=== PATIENT | female | born 1995 | race Caucasian/White ===

== ENCOUNTER 2016-09-25 20:43 | Observation (INO) ==
[2016-09-25 22:10] LABS: Bilirubin,Urine Negative (Negative); Blood,Urine Negative (Negative); Clarity,Urine Cloudy (Clear); Color,Urine Yellow (Yellow); Glucose,Urine (UA) Normal (Normal); Ketones,Urine Negative (Negative); Leukocyte Esterase,Urine Small (Negative); Nitrite,Urine Negative (Negative); PH,Urine 6.5 pH Units (5.0-8.0); Protein,Urine Negative (Neg-Trace); Specific Gravity,Urine 1.016 (1.010-1.025); Urobilinogen,Urine Normal (Normal)
[2016-09-25 22:15] LABS: Bacteria,Urine None Seen per hpf (None-Few); Hyaline Casts,Urine None Seen per lpf (None-Few); RBC,Urine 0-3 per hpf (0-3); Squamous Epithelial Cell,Urine Many per lpf (None-Few); WBC,Urine 0-3 per hpf (0-3)
--- NOTE | 2016-09-25 22:19 | OB/GYN History & Physical ---
Date of Encounter: 09/25/16 Time of Encounter: 22:15 History of Present Illness Chief complaint: RUQ pain HPI: Ms. Bullard is a 21 year old female, , 27w4d presenting with worsening RUQ pain for the week. Past Med Surg Social Fam HX - Past Medical History Medical history: no medical history Psychiatric history: anxiety, depression - Past Surgical History Surgical History: - Social History Smoking Status: Current every day smoker Packs per day: 0.25 Smokeless Tobacco Status: No Alcohol use: none Drug use: none - Family History Mother Living Status: Still Living Hx Family Cardiac Disorders: No Hx Family Respiratory Disorders: Yes (COPD, asthma) Hx Family Cancer: Yes (Breast Cancer) Hx Family GI Disorders: No Hx Family Genitourinary Disorders: No Hx Family Endocrine Disorder: No Hx Family Musculoskeletal Disorders: No Hx Family Neuromuscular Disorders: No Hx Family Neurologic Disorders: No Hx Family HEENT Disorders: No Hx Family Autoimmune Disorders: No Hx Family Reproductive Disorders: No Hx Family Psychosocial Disorders: No Hx Family Medical Disorders: No Obstetrical History - Pregnancies : 4 Medications and Allergies Multivitamin [Flintstones] 1 each PO DAILY 09/25/16 [History] Allergies Penicillins Allergy (Verified 06/07/16 10:35) Anaphylaxis Results Abnormal lab results Urine Clarity Cloudy (Clear) A 09/25/16 21:55 Ur Leukocyte Esterase Small (Negative) H 09/25/16 21:55 All other labs normal. - VTE Reasons for not Prescribing Prophylaxis: Treatment not Indicated - Low risk for VTE
[2016-09-25 22:20] LABS: Alanine Aminotransferase 7 Units/L (0-55); Albumin 2.8 g/dL (3.5-5.0); Alkaline Phosphatase 88 Units/L (38-126); Aspartate Amino Transferase 12 Units/L (5-34); BUN/Creatinine Ratio 9 (6-26); Bilirubin,Total 0.2 mg/dL (0.2-1.2); Calcium 8.8 mg/dL (8.6-10.8); Carbon Dioxide 21 mEq/L (19-29); Chloride 106 mEq/L (98-109); Glucose 99 mg/dL (70-99); Osmolality,Calculated 279 (280-300); Potassium 3.3 mEq/L (3.5-4.5); Sodium 136 mEq/L (136-145); Total Protein 6.2 g/dL (6.0-8.3); eGFR For African Americans > 60 (> 60); eGFR For Non-African Americans > 60 (> 60)
[2016-09-25 22:21] LABS: Albumin/Globulin Ratio 0.8 (1.1-2.2); Amylase 44 Units/L (25-125); Basophils % 0.3 %; Eosinophils # 0.2 K/mcL (0.0-0.6); Eosinophils % 1.4 %; Globulin 3.4 g/dL (2.4-3.5); Hematocrit 32.5 % (35.3-44.9); Hemoglobin 10.8 g/dL (11.5-15.4); Lipase 42 Units/L (8-78); Lymphocytes # 2.8 K/mcL (0.6-4.6); Lymphocytes % 21.8 %; Mean Corpuscular HGB Conc 33.2 g/dL (31.6-35.5); Mean Corpuscular Hemoglobin 30.3 pg (28.0-33.3); Monocytes # 0.8 K/mcL (0.0-1.3); Monocytes % 6.2 %; Platelet Count 248 K/mcL (140-400); Red Blood Count 3.57 M/mcL (3.82-4.97); Segmented Neutrophils % 69.3 %
[2016-09-25 22:22] LABS: Blood Urea Nitrogen 5 mg/dL (7-20)
--- NOTE | 2016-09-25 23:03 | OB/GYN Progress Note ---
Date of Encounter: 09/25/16 Time of Encounter: 22:30 - Assessment and Plan (1) Right upper quadrant abdominal pain Current Visit: Yes Status: Acute -RUQ pain for the past week. Worse with sitting up and relieved by laying down -Concern for Cholecystitis/choledocolitiasis/other gallbladder pathology. Pancreatitis. -No HTN. No TILLEY, blurry vision. Not concern for preeclampsia. -Patient able to eat and drink. Feels comfortable going home. Plan -CBC, CMP, Lipase, Urine -Ultrasound of gallbladder -results are negative. Patient will be discharged home with followup scheduled on the with Dr. Tomlin. Instructed patient that if she has new or worsening symptoms to come back a be evaluated and to inform her OBGYN tomorrow of visit. (2) 27 weeks gestation of Current Visit: Yes Status: Acute -Uncomplicated . -Continues to smoke. Subjective - Subjective Principal diagnosis: RUQ pain Interval history: Well appearing 21 year old female, , 27w4d presenting with worsening RUQ pain for the week. Pain described as burning and stabbing. Non radiating. Worse with sitting up. Relieved by laying down. Is able to eat and drink. Denies vaginal bleeding or discharge. Denies Nausea, vomiting, headache,fever,CP, SOB, acid reflux,CVA tenderness, bowel or bladder problems. No gallbladder or pancreatic problems in the past. Admits to smoking, denies drinking or drug use. Patient of Dr. Tomlin. Objective - Vital Signs Vital Signs: Intake and Output 09/25/16 09/25/16 09/25/16 07:59 15:59 23:59 Other: Weight 61.6 kg Patient Weight 09/25/16 23:59 Weight 61.6 kg - Exam FHR: auscultation normal Auscultation: bilateral: normal Abdomen: Present: normal appearance, soft, tenderness (Mild RUQ. ) Uterus: Present: normal, firm Comments: -Patient appears comfortable, sitting up. Unimpressive physical findings when palpating the abdomen. Independent ambulation to bathroom. No CVA tenderness or epigastrium tenderness. - Labs Labs: Abnormal lab results WBC 13.0 K/mcL (4.3-11.1) H 09/25/16 21:55 RBC 3.57 M/mcL (3.82-4.97) L 09/25/16 21:55 Hgb 10.8 g/dL (11.5-15.4) L 09/25/16 21:55 Hct 32.5 % (35.3-44.9) L 09/25/16 21:55 MPV 9.0 fL (9.4-12.4) L 09/25/16 21:55 Neutrophils # 9.0 K/mcL (1.6-8.9) H 09/25/16 21:55 Potassium 3.3 mEq/L (3.5-4.5) L 09/25/16 21:55 BUN 5 mg/dL (7-20) L 09/25/16 21:55 Creatinine 0.54 mg/dL (0.57-1.11) L 09/25/16 21:55 Calculated Osmolality 279 (280-300) L 09/25/16 21:55 Albumin 2.8 g/dL (3.5-5.0) L 09/25/16 21:55 Albumin/Globulin Ratio 0.8 (1.1-2.2) L 09/25/16 21:55 Urine Clarity Cloudy (Clear) A 09/25/16 21:55 Ur Leukocyte Esterase Small (Negative) H 09/25/16 21:55 Ur Squamous Epith Cells Many per lpf (None-Few) H 09/25/16 21:55 Ur Culture Indicated? YES (NO) A 09/25/16 21:55
== END 2016-09-25 23:17 | disposition home or self-care (01) ==
LOC: 1NENULAB
PROVIDERS: ADMIT Student in an Organized Health Care Education/Training Program; ATTEND Student in an Organized Health Care Education/Training Program

== ENCOUNTER 2016-11-27 21:01 | Observation (INO) ==
[2016-11-27] MEDS ORDERED: Ringers Solution, Lactated 1,000 ML IVC ONE (21:44)
[2016-11-27] MEDS ORDERED: Ringers Solution, Lactated 1,000 ML ONE (21:46)
[2016-11-27 22:16] LABS: Bilirubin,Urine Negative (Negative); Blood,Urine Negative (Negative); Clarity,Urine Cloudy (Clear); Color,Urine Yellow (Yellow); Glucose,Urine (UA) Normal (Normal); Ketones,Urine Negative (Negative); Leukocyte Esterase,Urine Small (Negative); Nitrite,Urine Negative (Negative); PH,Urine 6.5 pH Units (5.0-8.0); Protein,Urine 30 mg/dL (Neg-Trace); Specific Gravity,Urine 1.022 (1.010-1.025); Urobilinogen,Urine Normal (Normal)
[2016-11-27 22:18] LABS: Bacteria,Urine None Seen per hpf (None-Few); Hyaline Casts,Urine None Seen per lpf (None-Few); RBC,Urine 0-3 per hpf (0-3); Squamous Epithelial Cell,Urine Many per lpf (None-Few)
[2016-11-27 22:28] LABS: Mucus,Urine Few (Few)
[2016-11-27] MEDS ORDERED: Ringers Solution, Lactated 1,000 ML IVC SCH (23:45)
[2016-11-27] MEDS ORDERED: *HR* Nalbuphine 20 MG/ML AMPUL IVP PRN (23:50)
[2016-11-28 03:05] LABS: Basophils % 0.3 %; Eosinophils # 0.1 K/mcL (0.0-0.6); Hematocrit 33.2 % (35.3-44.9); Immature Granulocytes % 0.9 % (0-4); Immature Platelets 4.3 % (1.1-6.1); Lymphocytes % 17.8 %; Mean Corpuscular HGB Conc 33.1 g/dL (31.6-35.5); Mean Corpuscular Hemoglobin 30.1 pg (28.0-33.3); Mean Platelet Volume 9.7 fL (9.4-12.4); Platelet Count 267 K/mcL (140-400); Red Blood Count 3.65 M/mcL (3.82-4.97); Red Cell Distribution Width 12.6 % (11.5-14.5)
--- NOTE | 2016-11-28 03:19 | OB/GYN History & Physical ---
Date of Encounter: 11/28/16 Time of Encounter: 03:08 Assessment and Plan (1) 36 weeks gestation of Current visit: Yes Status: Acute FHTs 130-140 with moderate variability and 15x15 accels with no decels; category I tracing, reactive NST TOCO contractions every 2-4 minutes palpate mild with uterus palpating soft between contractions Extended monitoring Serial SVEs for cervical change Nubain for pain Procardia for labor Urinalysis complete - no urinary tract infection, contamination CBC steroids IV fluids (2) labor in third trimester Current visit: Yes Status: Acute Extended monitoring Serial SVEs for cervical change Nubain for pain Procardia for labor Urinalysis complete - no urinary tract infection, contamination CBC steroids IV fluids POC per consult with Dr Navarrete Qualifiers: labor delivery status: without delivery Qualified Code(s): O60.03 - labor without delivery, third trimester History of Present Illness Chief complaint: contractions HPI: Ms. Bullard is a 21 year old female at 36 weeks and 4 days that presents to labor and delivery with complaints of contractions that are not regular for the past 2 days. She states she had diarrhea and vomiting in the past 48 hours, but has been able to hold down food. She states positive movement and that she "lost her mucous plug today". She has a history of 2 previous deliveries, but no history of labor or . Past Med Surg Social Fam HX - Past Medical History Medical history: no medical history Psychiatric history: anxiety, depression - Past Surgical History Surgical History: - Social History Smoking Status: Current every day smoker Packs per day: 1/2 pack a day Smokeless Tobacco Status: No Alcohol use: none Drug use: none - Family History Mother Living Status: Still Living Hx Family Cardiac Disorders: No Hx Family Respiratory Disorders: Yes (astham, COPD) Hx Family Cancer: Yes (breast cancer) Hx Family GI Disorders: No Hx Family Endocrine Disorder: No Hx Family Neuromuscular Disorders: No Hx Family Neurologic Disorders: No Hx Family HEENT Disorders: No Hx Family Autoimmune Disorders: No Obstetrical History - Pregnancies : 4 Para: 2 Term: 2 Ab's: 1 Livin Medications and Allergies Multivitamin [Flintstones] 1 each PO DAILY 09/25/16 [History] Ferrous Sulfate [Iron] 1 tab PO DAILY 11/27/16 [History] Allergies Penicillins Allergy (Verified 11/27/16 21:16) Rash Review of System OB All systems PM: reviewed and no additional remarkable complaints except as stated Exam - Constitutional Constitutional: well developed, well nourished, no acute distress, average body habitus - HEENT HEENT: Normocephaly, Mucus Membranes Moist - Neck Neck exam: full ROM, normal inspection, supple - Lungs Respiratory exam: CTAB - Cardiovascular Cardiovascular exam: RRR, +S1, +S2 - Abdomen Abdomen: Present: bowel sounds normal, gravid, non tender - Extremities Extremities exam: normal capillary refill, normal inspection, radial pulses palpable and symetrical Deep Tendon Reflex Grade: 2+ Normal - Vulva Vulva: bilateral: normal (per RN exam) - Vagina Vagina: Present: normal moisture (per RN exam) - Cervix Dilation: 4 (Per RN exam) Effacement: 75 (Per RN exam) Station: -1 - Uterus Uterus exam: Present: normal size, normal contour (gravid) Results Result Diagrams: 11/28/16 Unknown Abnormal lab results WBC 11.3 K/mcL (4.3-11.1) H 11/28/16 Unknown RBC 3.65 M/mcL (3.82-4.97) L 11/28/16 Unknown Hgb 11.0 g/dL (11.5-15.4) L 11/28/16 Unknown Hct 33.2 % (35.3-44.9) L 11/28/16 Unknown Urine Clarity Cloudy (Clear) A 11/27/16 21:35 Urine Protein 30 mg/dL (Neg-Trace) H 11/27/16 21:35 Ur Leukocyte Esterase Small (Negative) H 11/27/16 21:35 Urine Microscopic WBC 5-15 per hpf (0-3) H 11/27/16 21:35 Ur Squamous Epith Cells Many per lpf (None-Few) H 11/27/16 21:35 Ur Culture Indicated? YES (NO) A 11/27/16 21:35 All other labs normal.
[2016-11-28] MEDS ORDERED: NIFEdipine XL (24 HR) 30 MG TAB.ER.24 PO STA (03:44)
[2016-11-28] MEDS ORDERED: NIFEdipine XL (24 HR) 30 MG TAB.ER.24 PO SCH (03:45)
[2016-11-28] MEDS ORDERED: Betamethasone Acet/SodPhos 6 MG/ML MDV IM SCH (03:45)
--- NOTE | 2016-11-28 07:06 | Discharge Summary ---
Date of Encounter: 11/28/16 Time of Encounter: 07:09 - Discharge Diagnosis (1) 36 weeks gestation of Priority: Secondary Status: Acute Comments: Positive movement Follow up in office with routine scheduled care Reactive NST; FHTs 140's with moderate variability 15x15 accels and no decels. no contractions (2) labor in third trimester Priority: Primary Status: Acute Comments: contractions have stopped after dose of procardia. Will continue procardia at home until 37 weeks. Patient to return to labor and delivery tomorrow morning for second dose of betamethasone. follow up in office for routine care as scheduled discharged home with labor precautions. POC per consult with Dr Navarrete Qualifiers: labor delivery status: without delivery Qualified Code(s): O60.03 - labor without delivery, third trimester - Discharge Medications Home Medications: Multivitamin [Flintstones] 1 each PO DAILY 09/25/16 [History] Ferrous Sulfate [Iron] 1 tab PO DAILY 11/27/16 [History] Allergies/Adverse Reactions: Allergies Penicillins Allergy (Verified 11/27/16 21:16) Rash Data Procedures and tests throughout hospitalization: Laboratory Tests 11/27/16 11/28/16 21:35 Unknown WBC 11.3 H RBC 3.65 L Hgb 11.0 L Hct 33.2 L MCV 91.0 MCH 30.1 MCHC 33.1 RDW 12.6 Plt Count 267 MPV 9.7 Immature Gran % 0.9 Seg Neutrophils % 71.0 Lymphocytes % 17.8 Monocytes % 9.0 Eosinophils % 1.0 Basophils % 0.3 Neutrophils # 8.0 Lymphocytes # 2.0 Monocytes # 1.0 Eosinophils # 0.1 Basophils # 0.0 Immature Plt Fraction 4.3 Urine Color Yellow Urine Clarity Cloudy A Urine pH 6.5 Ur Specific [place] 1.022 Urine Protein 30 H Urine Glucose (UA) Normal Urine Ketones Negative Urine Blood Negative Urine Nitrite Negative Urine Bilirubin Negative Urine Urobilinogen Normal Ur Leukocyte Esterase Small H Urine Microscopic RBC 0-3 Urine Microscopic WBC 5-15 H Ur Squamous Epith Cells Many H Urine Bacteria None Seen Hyaline Casts None Seen Urine Mucus Few Ur Culture Indicated? YES A Labs on day of discharge: Labs from last 24 hours 11/28/16 11/27/16 Unknown 21:35 WBC 11.3 H RBC 3.65 L Hgb 11.0 L Hct 33.2 L MCV 91.0 MCH 30.1 MCHC 33.1 RDW 12.6 Plt Count 267 MPV 9.7 Immature Gran % 0.9 Seg Neutrophils % 71.0 Lymphocytes % 17.8 Monocytes % 9.0 Eosinophils % 1.0 Basophils % 0.3 Neutrophils # 8.0 Lymphocytes # 2.0 Monocytes # 1.0 Eosinophils # 0.1 Basophils # 0.0 Immature Plt Fraction 4.3 Urine Color Yellow Urine Clarity Cloudy A Urine pH 6.5 Ur Specific [place] 1.022 Urine Protein 30 H Urine Glucose (UA) Normal Urine Ketones Negative Urine Blood Negative Urine Nitrite Negative Urine Bilirubin Negative Urine Urobilinogen Normal Ur Leukocyte Esterase Small H Urine Microscopic RBC 0-3 Urine Microscopic WBC 5-15 H Ur Squamous Epith Cells Many H Urine Bacteria None Seen Hyaline Casts None Seen Urine Mucus Few Ur Culture Indicated? YES A Date of admission: 11/27/16 21:01 Discharging clinician: Betzy Hawkins - Patient Status Disposition: Home, Self-Care Condition: Good Functional capacity at discharge: independent ambulation Overall status at discharge: patient is back to baseline - Discharge Instructions Follow Up With: Yisel Tomlin MD [Partnered Physician] - - Diet and Activity Activity: increase activity as tolerated Diet: regular diet Hospital Course ADULT CROSSING GUARD Time Attestation: Total time spent providing and/or coordinating discharge services: Time Spent: Less than 30 minutes
== END 2016-11-28 07:57 | disposition home or self-care (01) ==
LOC: 1NENULAB
PROVIDERS: ADMIT Obstetrics & Gynecology; ATTEND Obstetrics & Gynecology

== ENCOUNTER 2016-12-11 15:18 | Inpatient (IN) ==
--- NOTE | 2016-12-11 15:37 | OB/GYN History & Physical ---
Date of Encounter: 12/11/16 Time of Encounter: 15:32 Assessment and Plan (1) Rupture of membranes with clear amniotic fluid Current visit: Yes Status: Acute Admit to labor and delivery Prepare for repeat section Anesthesia consult Nothing by mouth Anticipate section (2) History of delivery Current visit: Yes Status: Acute (3) 38 weeks gestation of Current visit: Yes Status: Acute History of Present Illness Chief complaint: SROM HPI: Ms. Bullard is a [address] patient Dr[address] Tomlin presents with spontaneous rupture of membranes at 3 PM today. Patient reports clear fluid at time of rupture, reports good movement, denies any vaginal bleeding or contractions. Patient states uncomplicated. Previous 2 Labs: O+, rubella non-immune, GBS negative, all other serologies negative Past Med Surg Social Fam HX - Past Medical History Medical history: no medical history Psychiatric history: anxiety, depression - Past Surgical History Surgical History: - Social History Smoking Status: Current every day smoker Smokeless Tobacco Status: No Alcohol use: none Drug use: none - Family History Mother Living Status: Still Living Hx Family Cardiac Disorders: No Hx Family Respiratory Disorders: Yes (astham, COPD) Hx Family Cancer: Yes (breast cancer) Hx Family GI Disorders: No Hx Family Endocrine Disorder: No Hx Family Neuromuscular Disorders: No Hx Family Neurologic Disorders: No Hx Family HEENT Disorders: No Hx Family Autoimmune Disorders: No Obstetrical History - Pregnancies : 4 Para: 2 Term: 2 : 0 Ab's: 1 Livin Medications and Allergies Multivitamin [Flintstones] 1 each PO DAILY 09/25/16 [History] Ferrous Sulfate [Iron] 1 tab PO DAILY 11/27/16 [History] NIFEdipine XL (24 HR) [Procardia XL] 30 mg PO DAILY #2 tablet.er 11/28/16 [Rx] Allergies Penicillins Allergy (Verified 11/27/16 21:16) Rash Exam - Constitutional Constitutional: well developed, well nourished, no acute distress, average body habitus - Neck Neck exam: full ROM - Lungs Respiratory exam: CTAB - Cardiovascular Cardiovascular exam: RRR, +S1, +S2 - Breasts Breast: bilateral: normal - Abdomen Abdomen: Present: bowel sounds normal, gravid, non tender - Uterus Uterus exam: Present: normal size, normal contour Results All other labs normal.
[2016-12-11] MEDS ORDERED: Famotidine 20 MG/2 ML VIAL IVP PRN (15:43)
[2016-12-11] MEDS ORDERED: Naloxone 0.4 MG/ML INJ IVP PRN ×3 (15:43→20:09)
[2016-12-11] MEDS ORDERED: Famotidine 20 MG/2 ML VIAL IVP ONE (15:45)
[2016-12-11] MEDS ORDERED: Gentamicin 300 MG in 0.9 % Sodium Chloride 100 ML IVPB ONE (15:45)
[2016-12-11] MEDS ORDERED: Clindamycin 900 MG/50 ML 900 MG/50 ML IV.SOLN IVPB ONE (15:45)
[2016-12-11] MEDS ORDERED: Ringers Solution, Lactated 1,000 ML IVC ONE (15:45)
[2016-12-11] MEDS ORDERED: Metoclopramide 10 MG/2 ML VIAL IVP ONE (15:45)
[2016-12-11] MEDS ORDERED: Oxytocin 20 units/ LR 1000 mL 20 UNIT/1,000 ML BAG IVC SCH (15:45)
[2016-12-11 16:10] LABS: Basophils % 0.2 %; Eosinophils # 0.1 K/mcL (0.0-0.6); Eosinophils % 0.7 %; Hematocrit 34.4 % (35.3-44.9); Hemoglobin 11.5 g/dL (11.5-15.4); Lymphocytes % 15.3 %; Mean Corpuscular HGB Conc 33.4 g/dL (31.6-35.5); Mean Corpuscular Volume 89.8 fL (83.0-100.0); Mean Platelet Volume 9.3 fL (9.4-12.4); Neutrophils # 9.7 K/mcL (1.6-8.9); Platelet Count 249 K/mcL (140-400); Red Blood Count 3.83 M/mcL (3.82-4.97); Red Cell Distribution Width 12.8 % (11.5-14.5); Segmented Neutrophils % 74.8 %
[2016-12-11] MEDS ORDERED: *HR* FentaNYL (PF) 100 MCG/2 ML VIAL ONE (16:24)
[2016-12-11] MEDS ORDERED: *HR* Morphine Sulfate/PF 5 MG/10 ML AMPUL ONE (16:24)
--- NOTE | 2016-12-11 16:24 | Anesthesia Evaluation PreOp ---
Date of Encounter: 12/11/16 Time of Encounter: 16:22 - Past History Planned Operation: Repeat C/S Cardiac History: Denies any Significant Hx Pulmonary History: Smoker (<1ppd) [employer] History: Denies Any Significant HX, Other (Anxiety/depression) Other Medical History: Denies Any Significant HX Anesthesia History: No Prior Anesthetic Complications, Past Anesthesia (C/S x 2 , hymen surgery (age 12)) Alcohol Use: none Drug use: none Medications and Allergies Multivitamin [Flintstones] 1 each PO DAILY 09/25/16 [History] Ferrous Sulfate [Iron] 1 tab PO DAILY 11/27/16 [History] Allergies Penicillins Allergy (Verified 12/11/16 15:39) Rash - Meds/Allergy Pre-op Review Medications Reviewed: Yes Allergies Reviewed: Yes Beta Blockers on Current Med List: No Anesthesia Results - Labs 12/11/16 15:33 Laboratory Tests 07/07/16 10:13 HSV I Glycoprot-G Ab 38.50 H Anesthesia Exam O2 Sat Height 1.65 m Weight 66.1 kg Height: 5'5" Weight: 145# bmi = 24 NPO (# of Hours): mnOC - HEENT Pupil (Motor): Pupils equal, EOMI Mallampati: II (braces & tongue ring) Teeth: Normal Oral Opening: Greater than 3 - [employer] LOC: Oriented [employer] Motor: Normal RUE, Normal LUE, Normal RLE, Normal LLE, Normal Face [employer] Sensory: Normal: RUE, LUE, RLE, LLE, Face - Cardiac Rhythm: Regular Murmur: None - Pulmonary Respiratory Effort: Symmetrical Anesthesia Assess/Plan Modified Rashad Scale for Level of Consciousness: Cooperative, oriented, and tranquil Anesthetic Plan: General Monitoring Plan: Standard Monitors Recovery Plan: PACU Anes Supervising Prov Stmt: Pt seen/evaluated, R&B discussed, questions answered and consent obtained. Rhiannon Barahona MD
[2016-12-11] MEDS ORDERED: *HR* Oxytocin 10 UNIT/ML VIAL IM ONE (16:34)
[2016-12-11] MEDS ORDERED: Acetaminophen IV 1,000 MG/100 ML INFUS..BTL IVPB STA (16:39)
[2016-12-11] MEDS ORDERED: Ibuprofen 800 MG TABLET PO PRN (16:40)
[2016-12-11] MEDS ORDERED: *HR* HYDROmorphone (PF) 1 MG/ML SYRINGE IVP PRN ×2 (16:40→20:09)
[2016-12-11] MEDS ORDERED: Ondansetron 4 MG/2 ML VIAL IVP PRN ×2 (16:40→20:09)
[2016-12-11] MEDS ORDERED: *HR* Morphine 2 MG/ML SYRINGE IVP PRN ×2 (16:40→20:09)
[2016-12-11] MEDS ORDERED: *HR* OxyCODONE/APAP 5/325 TABLET PO PRN ×2 (16:40→20:09)
[2016-12-11] MEDS ORDERED: Ringers Solution, Lactated 1,000 ML ONE (17:17)
--- NOTE | 2016-12-11 17:26 | Anesthesia Procedures ---
Date of Encounter: 12/11/16 Time of Encounter: 17:36 Procedures: Anesthesia - Epidural/Spinal Patient ID/Chart reviewed: Yes Patient examined: Yes OB Eval: Gestational age: 38.4 OB Eval: : 3 OB Eval: Hx Para: 2 OB Eval: Dilated at (cm): 2 OB Eval: Contractions: Non-stressed pattern Consent Obtained: Yes Supplemental Oxygen: Nasal Cannula Supplemental Oxygen Rate (L/min): 3 Site Prep: Aseptic Technique, Sterile prep and drape, 0.5% Chlorhexidine/Alcohol Patient position: upright Local Anesthetic: Lidocaine 1% (3) Amount of Local Anesthetic used: 3 Interspace Used: L2-L3 Loss of Resistance (MARIO): No Blood: No CSF: Yes (clear x4 quads) Paresthesia: No Spinal Needle Gauge: 25 Spinal Dose: MMarcaine 12, duramorph 0.2, fent 7 mcg Procedure: aseptic, VSS, effective, tolerated well Vitals + FHT's: satble
[2016-12-11] MEDS ORDERED: EPHEDrine 50 MG/ML VIAL ONE (17:53)
--- NOTE | 2016-12-11 18:40 | OB/GYN Procedure Note ---
Section - Date of procedure: 12/11/16 Preop diagnosis: desires repeat , desires sterilization, other (SROM at 38 weeks) Post-op diagnosis: same Procedure: section, repeat low transverse, bilateral tubal ligation Surgeon: Radha Ulloa Estimated blood loss (cc): 200 Finished Cloth Examiner: Octavio Vincent Anesthesia Type: Spinal section complications: none Disposition: L&D Recovery Room Specimens: Cord segment, Right tube segment, Left tube segment - (s) Infant A Delivery Date: 12/11/16 Infant Delivery Time: 17:51 Presentation: vertex Gender: Female Viability: Viable Pounds: 7 Ounces: 5 Gram Weight: 3.305 kg at 1 minute: 8 at 5 minutes: 9 Shoulder Dystocia: not encountered Specimens collected: cord blood Placenta: spontaneous Cord: 3 umbilical vessels - Narrative Narrative: Patient was taken to the operative suite and placed under spinal anesthetic. She was then prepped and draped in normal sterile fashion in the dorsal supine position. Timeout was then performed. Antibiotics were given at room time. SCDs are on and active. Pfannenstiel skin incision is then made and carried through to underlying layer of fascia with the Bovie. The fascia was then incised in the midline and incision extended laterally with the Quiroz scissors. The fascia was tented up and dissected off the rectus muscles sharply. The rectus muscles were in the midline and the peritoneum had a defect midline which was extended bluntly. The bladder blade was then inserted and the vesicouterine peritoneum was entered sharply. Bladder flap was created digitally. A low transverse uterine incision was then made. The vertex was brought to the incision and the infant was delivered using fundal pressure. There was no nuchal cord. Cord was clamped and cut. was handed to waiting nursery staff. Placenta delivered spontaneously complete and intact with a three-vessel cord. The uterus was cleared of all clots and debris using moist laparotomy sponge. The uterine incision was then closed using 0 Vicryl in a running locked fashion. Attention was then turned to the patient's tube. The left tube was then grasped and followed to the fimbriated end. The left tube was adherent to the lateral uterus and then able to be freed safely due to the engorged vessels. The tube was grasped in the midportion and a 3 cm knuckle of tube was double suture ligated and transected in Kaylie fashion. Hemostasis was assured and the tube was returned to the abdomen. The right tube in a similar fashion was knuckled up and a 4 cm segment was double suture ligated and transected. Hemostasis was assured and the tube was returned to the abdomen. The abdomen was then cleared of all clots and debris using copious irrigation. The fascial incision was then closed using 0 Vicryl in a running fashion. The skin was closed using 4-0 Vicryl in a subcuticular fashion. Steri-Strips and sterile dressing are then placed. Mother and taken to recovery in stable condition.
[2016-12-11] MEDS ORDERED: Sennosides 8.6 MG TABLET PO PRN (20:09)
[2016-12-11] MEDS ORDERED: Measles/Mumps/Rubella Vacc 0.5 ML VIAL SQ ONE (20:09)
[2016-12-11] MEDS ORDERED: Acetaminophen 325 MG TABLET PO PRN (20:09)
[2016-12-11] MEDS ORDERED: Metoclopramide 10 MG/2 ML VIAL IVP PRN (20:09)
[2016-12-11] MEDS ORDERED: Simethicone 80 MG TAB.CHEW PO PRN (20:09)
[2016-12-12] MEDS: Oxytocin 20 units/ LR 1000 mL 20 UNIT/1,000 ML BAG IVC SCH ×2 (00:20→08:05)
[2016-12-12] MEDS: Prenatal Vit/FA 1 EACH TABLET PO SCH (08:04)
--- NOTE | 2016-12-12 08:57 | OB/GYN Progress Note ---
Date of Encounter: 12/12/16 Time of Encounter: 08:55 - Assessment and Plan (1) Status post repeat low transverse section Current Visit: Yes Status: Acute s/p RC/S with BTL POD# 2, advance to regular diet, ambulation encouraged, aim for discharge tomorrow, cont current inpt care. Subjective - Subjective Patient reports: appetite normal, pain well controlled, ambulating normally ( tolerating clears, [place] taken out this AM and has not yet urinated) : doing well Objective - Vital Signs Latest vital signs: Vital Signs Temp Pulse Resp BP Pulse Ox 12/12/16 07:30 98.2 F 81 16 103/71 12/12/16 05:50 98 F 76 16 122/78 97 12/11/16 23:50 97.9 F 75 20 118/68 97 12/11/16 22:45 97.8 F 77 22 116/68 97 12/11/16 21:45 97.8 F 78 22 115/67 97 12/11/16 21:10 97.6 F 84 16 114/73 96 Intake and Output 12/11/16 12/12/16 12/12/16 23:59 07:59 15:59 Intake Total 713 / 713 287 / 287 Output Total 400 / 400 900 / 900 Balance -400 / -400 -187 / -187 287 / 287 Intake: IV Fluids 713 / 713 287 / 287 Pitocin 20 unit In 1,000 713 / 713 287 / 287 ml @ 125 mls/hr IVC .Q8H [facility] Rx#:[id number] Output: Emesis 200 / 200 Estimated Blood Loss 200 / 200 Catheter 900 / 900 Other: Weight 60.81 kg Patient Weight 12/12/16 23:59 Weight 60.81 kg - Exam Lungs: bilateral: normal Chest: Normal S1, Normal S2 Extremities: Present: normal Abdomen: Present: normal appearance Incision: Present: dressed Uterus: Present: normal, firm - Labs Labs: Laboratory Results - last 24 hr 12/11/16 15:33 WBC 12.9 H RBC 3.83 Hgb 11.5 Hct 34.4 L MCV 89.8 MCH 30.0 MCHC 33.4 RDW 12.8 Plt Count 249 MPV 9.3 L Immature Gran % 1.0 Seg Neutrophils % 74.8 Lymphocytes % 15.3 Monocytes % 8.0 Eosinophils % 0.7 Basophils % 0.2 Neutrophils # 9.7 H Lymphocytes # 2.0 Monocytes # 1.0 Eosinophils # 0.1 Basophils # 0.0
[2016-12-12] MEDS: Ibuprofen 600 MG TABLET PO PRN (20:04)
[2016-12-13] MEDS: Ibuprofen 600 MG TABLET PO PRN (06:16)
[2016-12-13] MEDS: Prenatal Vit/FA 1 EACH TABLET PO SCH (08:14)
[2016-12-13 08:25] VITALS: BP 115/74
--- NOTE | 2016-12-13 09:45 | Discharge Summary ---
Date of Encounter: 12/13/16 Time of Encounter: 08:00 - Discharge Diagnosis (1) Status post repeat low transverse section Priority: Primary Status: Acute Comments: She will discharge home PO Percocet which she has taken with her previous sections and done well. She is only bottle feeding (no breast feeding or supplementation with breast milk). - Discharge Medications Prescriptions: OxyCODONE/APAP 5/325 [Percocet 5/325 MG] 1 each PO Q4HR PRN #18 tablet PRN Reason: Moderate pain 4-6 Ibuprofen [Motrin] 600 mg PO Q6HR PRN #40 tablet PRN Reason: Cramping Home Medications: Multivitamin [Flintstones] 1 each PO DAILY 09/25/16 [History] Ferrous Sulfate [Iron] 1 tab PO DAILY 11/27/16 [History] Ibuprofen [Motrin] 600 mg PO Q6HR PRN #40 tablet 12/13/16 [Rx] OxyCODONE/APAP 5/325 [Percocet 5/325 MG] 1 each PO Q4HR PRN #18 tablet 12/13/16 [Rx] Allergies/Adverse Reactions: Allergies Penicillins Allergy (Verified 12/11/16 15:39) Rash Data Procedures and tests throughout hospitalization: Laboratory Tests 12/11/16 15:33 WBC 12.9 H RBC 3.83 Hgb 11.5 Hct 34.4 L MCV 89.8 MCH 30.0 MCHC 33.4 RDW 12.8 Plt Count 249 MPV 9.3 L Immature Gran % 1.0 Seg Neutrophils % 74.8 Lymphocytes % 15.3 Monocytes % 8.0 Eosinophils % 0.7 Basophils % 0.2 Neutrophils # 9.7 H Lymphocytes # 2.0 Monocytes # 1.0 Eosinophils # 0.1 Basophils # 0.0 Date of admission: 12/11/16 15:18 Consults: 12/11/16 23:10 Consult to [employer] ([employer]) [CONS] Routine Reason For Exam: Reason for SW Consult: PT ASKED NURSE IF IT WAS NORMAL TO HAVE THINK ABOUT HERSELF AND HER KIDS DYING. THIS WAS ON A PRIOR VISIT Discharging clinician: Radha Ulloa Anticipated date of discharge: 12/13/16 - Patient Status Disposition: Home, Self-Care Condition: Good Functional capacity at discharge: independent ambulation - Discharge Instructions Follow Up With: Radha Ulloa, [Partnered Physician] - - Diet and Activity Activity: increase activity as tolerated Diet: advance to your usual diet Hospital Course Reason for admission: rupture of membranes, IUP at term Delivery: section (repeat) Laceration: none Other procedures: none complications: none Discharge diagnosis: IUP at term delivered [place] baby: female Time Attestation: Total time spent providing and/or coordinating discharge services: - VTE Reasons for not Prescribing Prophylaxis: Medical contraindication Documentation of Mechanical Device: Intermittent pneumatic compression device Exam - Constitutional Vitals: Temp Pulse Resp BP Pulse Ox 98.2 F 77 16 115/74 98 12/13/16 07:30 12/13/16 07:30 12/13/16 07:30 12/13/16 07:30 12/12/16 20:00 General appearance IM: A&O X 3, no acute distress - Respiratory Respiratory exam: Present: CTAB. Absent: respiratory distress - Cardiovascular Cardiovascular exam IM: Present: RRR. Absent: irregular rhythm - GI/Abdominal GI/Abdominal exam IM: normal bowel sounds Incision: normal, dry, intact - Rectal Rectal exam: deferred - Uterine Tone: Firm Uterus Position: At Umbilicus - Extremities Exam Extremities exam IM: Absent: calf tenderness - Neurological Exam Neurological exam: oriented X3
== END 2016-12-13 12:07 | disposition home or self-care (01) | DRG 540 ==
LOC: 1NENULAB 15:18 → 1NENUOBS 20:44
PROVIDERS: ADMIT Obstetrics & Gynecology; ATTEND Obstetrics & Gynecology

== ENCOUNTER 2017-01-28 16:49 | Observation (INO) ==
--- NOTE | 2017-01-28 17:54 | Emergency Department Note ---
Disposition Clinical Impression: Acute cholecystitis, Atypical chest pain Disposition: Admitted As Inpatient Condition: Fair Time of Disposition: 20:24 Chest Pain HPI - General Chief Complaint: ED Chest Pain Stated Complaint: CP/JAMES Time Seen by Provider: 01/28/17 17:16 Source: patient Limitations: no limitations Vital Signs Reviewed: Yes Nursing Notes Reviewed: Yes - History of Present Illness HPI Narrative: Patient is 6 weeks and she presents with chest pain for the last 3 days which is constant and she also has associated back pain but states the chest pain does not radiate to the back. Her chest pain is constant and exertional and does have associated dyspnea. She does have a pleuritic component. She denies any pain or swelling of the lower extremities. She also has associated upper abdominal pain worse on the right-hand side which is minimal. She denies any dysuria or urinary frequency, blood in the urine or stool, vaginal bleeding or discharge. Social history: Smoker, occasional alcohol, is here with her father. Family history: Negative for heart disease or blood clotting problems and the parents or siblings Severity scale (1-10): 10 - Related Data Home Medications Medication Instructions Recorded Confirmed No Known Home Drugs 01/28/17 01/28/17 Allergies Allergy/AdvReac Type Severity Reaction Status Date / Time Penicillins Allergy Rash Verified 01/28/17 17:08 Review of Systems: Denies any blood in the urine or stool Chest Pain PMH - Past Medical History Medical history: Reports: no medical history Surgical history: Reports: Psychiatric history: Reports: anxiety, depression DIRECTOR OF STRATEGIC INITIATIVES history: Reports: spontaneous - Social History Smoking Status: Current every day smoker Alcohol use: Reports: none Drug use: Reports: none Physical Exam CONSTITUTIONAL: Well-appearing; well-nourished; A&O X 3, in no apparent distress HEAD: Normocephalic; atraumatic EYES: PERRL, no scleral icterus NOSE: The nose is normal in appearance without rhinorrhea NECK: No JVD or distended neck veins RESP: Normal chest excursion with respiration; breath sounds clear and equal bilaterally; no wheezes, rhonchi, or rales CARD: Regular rhythm, without murmurs, rub or gallop ABD: Non-distended; mild discomfort with palpation right upper quadrant with soft without rigidity, rebound, guarding. Elsewhere the abdomen is non-tender, soft, without rigidity, rebound or guarding,no pulsatile mass CHEST: Does have minimal pain with palpation anterior chest wall. Normal appearance SKIN: Normal for age and race; warm and dry without diaphoresis ; no apparent lesions EXTREMITIES: Pulses are 2 plus and equal times 4 extremities, no peripheral edema or calf muscle pain - General Limitations: no limitations General appearance: alert, in no apparent distress Course Vital Signs Temperature 97.9 F 01/28/17 17:03 Pulse Rate 53 01/28/17 17:03 Respiratory Rate 16 01/28/17 17:03 Blood Pressure 98/61 01/28/17 17:03 O2 Sat by Pulse Oximetry 99 01/28/17 17:03 Temperature 97.9 F 01/28/17 17:03 Pulse Rate 53 01/28/17 17:03 Respiratory Rate 16 01/28/17 17:03 Blood Pressure 98/61 01/28/17 17:03 O2 Sat by Pulse Oximetry 99 01/28/17 17:03 Oxygen Delivery Oxygen Delivery Room Air Chest Pain - MDM Narrative Medical decision making narrative: Patient's symptoms are most likely suggestive of musculoskeletal chest wall pain and a did review the squad rhythm strip which does not show evidence of ischemia. EKG here will be read. Labs including d-dimer are pending. The patient has no lower extremity peripheral edema. Only mild right upper quadrant pain. Labs including LFTs and lipase are pending. 1800 I did review the EKG showing sinus bradycardia with a rate of 58 without acute ischemic change 1800 Pt has leukocytosis, elevated LFT's, and an ultrasound showing gallstones and dilation of the common bile duct. I did speak with Dr. Ellis with the patient to his service. I did start antibiotics. Likely cholecystectomy this evening. 2024 - Medical Records Medical records reviewed: Yes I reviewed the patient's medical records. - Lab Data Lab results reviewed: Yes I reviewed the patient's lab results. Result diagrams: 01/28/17 17:56 01/28/17 17:56 Lab Results 01/28/17 01/28/17 01/28/17 Range/Units 17:56 17:56 17:56 WBC 16.1 H (4.3-11.1) K/mcL RBC 4.39 (3.82-4.97) M/mcL Hgb 12.4 (11.5-15.4) g/dL Hct 38.9 (35.3-44.9) % MCV 88.6 (83.0-100.0) fL MCH 28.2 (28.0-33.3) pg MCHC 31.9 (31.6-35.5) g/dL RDW 13.3 (11.5-14.5) % Plt Count 307 (140-400) K/mcL MPV 8.9 L (9.4-12.4) fL D-Dimer 628 H (0-500) ng/mLFEU Sodium 141 (136-145) mEq/L Potassium 3.5 (3.5-4.5) mEq/L Chloride 109 (98-109) mEq/L Carbon Dioxide 26 (19-29) mEq/L BUN 12 (7-20) mg/dL Creatinine 0.74 (0.57-1.11) mg/dL Est GFR ( Amer) > 60 (> 60) Est GFR (Non-Af Amer) > 60 (> 60) BUN/Creatinine Ratio 16 (6-26) Glucose 108 H (70-99) mg/dL Calculated Osmolality 292 (280-300) Calcium 9.0 (8.6-10.8) mg/dL Total Bilirubin 1.1 (0.2-1.2) mg/dL Direct Bilirubin 0.7 H (0.0-0.5) mg/dL Indirect Bilirubin 0.4 (0.0-1.2) mg/dL AST 142 H (5-34) Units/L ALT 79 H (0-55) Units/L Alkaline Phosphatase 137 H (38-126) Units/L Serum Total Protein 6.6 (6.0-8.3) g/dL Albumin 3.8 (3.5-5.0) g/dL Globulin 2.8 (2.4-3.5) g/dL Albumin/Globulin Ratio 1.4 (1.1-2.2) Lipase 46 (8-78) Units/L - Radiology Data Radiology results reviewed: Yes I reviewed the patient's radiology results.
[2017-01-28 18:03] LABS: Hematocrit 38.9 % (35.3-44.9); Hemoglobin 12.4 g/dL (11.5-15.4); Mean Corpuscular HGB Conc 31.9 g/dL (31.6-35.5); Mean Corpuscular Hemoglobin 28.2 pg (28.0-33.3); Mean Corpuscular Volume 88.6 fL (83.0-100.0); Mean Platelet Volume 8.9 fL (9.4-12.4); Platelet Count 307 K/mcL (140-400); Red Blood Count 4.39 M/mcL (3.82-4.97); Red Cell Distribution Width 13.3 % (11.5-14.5)
[2017-01-28 18:20] LABS: Alanine Aminotransferase 79 Units/L (0-55); Albumin 3.8 g/dL (3.5-5.0); Albumin/Globulin Ratio 1.4 (1.1-2.2); Alkaline Phosphatase 137 Units/L (38-126); Aspartate Amino Transferase 142 Units/L (5-34); BUN/Creatinine Ratio 16 (6-26); Bilirubin,Direct 0.7 mg/dL (0.0-0.5); Bilirubin,Indirect 0.4 mg/dL (0.0-1.2); Bilirubin,Total 1.1 mg/dL (0.2-1.2); Blood Urea Nitrogen 12 mg/dL (7-20); Carbon Dioxide 26 mEq/L (19-29); Chloride 109 mEq/L (98-109); Globulin 2.8 g/dL (2.4-3.5); Glucose 108 mg/dL (70-99); Lipase 46 Units/L (8-78); Osmolality,Calculated 292 (280-300); Potassium 3.5 mEq/L (3.5-4.5); Sodium 141 mEq/L (136-145); Total Protein 6.6 g/dL (6.0-8.3); eGFR For African Americans > 60 (> 60); eGFR For Non-African Americans > 60 (> 60)
[2017-01-28] MEDS ORDERED: cefOXitin 2,000 MG in D5% in Water (Mini-Bag+) 100 ML IVPB ONE (20:17)
[2017-01-28 21:04] LABS: Bilirubin,Urine Small (Negative); Blood,Urine Negative (Negative); Clarity,Urine Turbid (Clear); Color,Urine Dark Yellow (Yellow); Glucose,Urine (UA) Normal (Normal); Ketones,Urine Negative (Negative); Leukocyte Esterase,Urine Trace (Negative); Nitrite,Urine Negative (Negative); Protein,Urine Trace mg/dL (Neg-Trace); Specific Gravity,Urine > 1.030 (1.010-1.025); Urobilinogen,Urine Normal (Normal)
[2017-01-28 21:14] LABS: Amorphous Sediment,Urine Many (Few); Squamous Epithelial Cell,Urine Moderate per lpf (None-Few)
[2017-01-28 21:15] LABS: Bacteria,Urine Many per hpf (None-Few); Mucus,Urine Few (Few); RBC,Urine 0-3 per hpf (0-3)
--- NOTE | 2017-01-28 21:39 | General Surg History&Physical ---
Date of Encounter: 01/28/17 Time of Encounter: 21:30 Assessment and Plan (1) Acute cholecystitis Current Visit: Yes Status: Acute The assessment and plan as outlined above was discussed with the patient and/or family members who expressed understanding and agreement. All questions were answered. The patient has leukocytosis associated with abnormal liver function testing and abnormal ultrasound of the right upper quadrant demonstrating cholelithiasis and gallbladder sludge as well as pericholecystic inflammation and a slightly dilated common bile duct. The bilirubin is 1.1. She is in a good deal of pain and I think it is reasonable to proceed with urgent cholecystectomy and cholangiogram. I discussed the risks and benefits with her and she wishes to proceed. History of Present Illness Chief complaint: Abdominal pain HPI: Ms. Bullard is a 21 year old female The patient delivered a healthy baby 4 weeks ago. During her she developed intermittent right upper quadrant pain. She had pain off and on after the delivery and for the last week felt very well. Last night and this morning she developed progressive right upper quadrant pain that was unrelenting. She sought evaluation in the emergency department. Ultrasound of the right upper quadrant demonstrated sludge and stones and findings consistent with acute cholecystitis. Her common bile duct was dilated. Liver function tests were mildly elevated bilirubin was normal at 1.1. Her white blood cell count is elevated at 16,100 and she now presents for evaluation of acute cholecystitis and possibly choledocholithiasis associated with ascending cholangitis. We will proceed with urgent laparoscopic cholecystectomy and intraoperative cholangiogram to see if distal common bile duct stone can be identified. Past Med Surg Social Fam HX - Past Medical History Medical history: no medical history Psychiatric history: anxiety, depression - Past Surgical History Surgical History: - Social History Smoking Status: Current every day smoker Smokeless Tobacco Status: No Alcohol use: none Drug use: none - Family History Mother Living Status: Still Living Hx Family Cardiac Disorders: No Hx Family Respiratory Disorders: Yes (astham, COPD) Hx Family Cancer: Yes (breast cancer) Hx Family GI Disorders: No Hx Family Endocrine Disorder: No Hx Family Neuromuscular Disorders: No Hx Family Neurologic Disorders: No Hx Family HEENT Disorders: No Hx Family Autoimmune Disorders: No Medications and Allergies No Known Home Drugs 01/28/17 [History] Allergies Penicillins Allergy (Verified 01/28/17 17:08) Rash Review of Systems All systems PM: A 10-system review of systems was performed and is negative for pertinent findings except as documented above in the HPI. General Surgery Exam Initial Vital Signs Temp Pulse Resp BP Pulse Ox 97.9 F 53 16 98/61 99 01/28/17 17:03 01/28/17 17:03 01/28/17 17:03 01/28/17 17:03 01/28/17 17:03 - General physical appearance well developed, well nourished, no distress - ENT normal pinna, normal nares, normal mucosa, no hearing loss, no congestion - Neck no masses, no bruits, trachea midline, no lymphadectomy, no venous distension - Respiratory normal expansion, normal respiratory effort, clear to percussion, clear to auscultation - Cardiovascular Cardiovascular exam: Present: RRR, 15, 16 - Abdomen Abdomen general surgery: Present: bowel sounds present, tender Abdominal Tenderness: Present: RUQ - Integumentary Integumentary general surgery: Present: other (No detectable jaundice) - Neurologic Present: CN 2-12 grossly intact, normal coordination, normal sensation - Psychiatric Psychiatric general surgery: Present: appropriate, oriented to person, oriented to place, oriented to time, speech is normal, memory intact Results - Labs 01/28/17 17:56 01/28/17 17:56 Abnormal lab results WBC 16.1 K/mcL (4.3-11.1) H 01/28/17 17:56 MPV 8.9 fL (9.4-12.4) L 01/28/17 17:56 D-Dimer 628 ng/mLFEU (0-500) H 01/28/17 17:56 Glucose 108 mg/dL (70-99) H 01/28/17 17:56 Direct Bilirubin 0.7 mg/dL (0.0-0.5) H 01/28/17 17:56 AST 142 Units/L (5-34) H 01/28/17 17:56 ALT 79 Units/L (0-55) H 01/28/17 17:56 Alkaline Phosphatase 137 Units/L (38-126) H 01/28/17 17:56 Urine Clarity Turbid (Clear) A 01/28/17 20:50 Ur Specific [place] > 1.030 (1.010-1.025) H 01/28/17 20:50 Urine Bilirubin Small (Negative) H 01/28/17 20:50 Ur Leukocyte Esterase Trace (Negative) H 01/28/17 20:50 Urine Microscopic WBC 3-5 per hpf (0-3) H 01/28/17 20:50 Ur Squamous Epith Cells Moderate per lpf (None-Few) H 01/28/17 20:50 Amorphous Sediment Many (Few) H 01/28/17 20:50 Urine Bacteria Many per hpf (None-Few) H 01/28/17 20:50 Ur Culture Indicated? YES (NO) A 01/28/17 20:50 All other labs normal. - Imaging US - abdomen: image reviewed (I personally reviewed the ultrasound gallbladder. She does have sludge and stones in the gallbladder and signs of pericholecystic inflammation. The common bile duct is slightly dilated.)
[2017-01-28] MEDS ORDERED: *HR* Promethazine 25 MG/ML VIAL IVP PRN (21:56)
--- NOTE | 2017-01-28 21:56 | Anesthesia Evaluation PreOp ---
Date of Encounter: 01/28/17 Time of Encounter: 21:55 - Past History Planned Operation: lap mathieu c gram Cardiac History: Denies any Significant Hx Pulmonary History: Smoker BUSINESS DEPARTMENT CHAIR History: Other (anxiety/depression) Other Medical History: Denies Any Significant HX, Other (6 weeks post , not breast feeding) Anesthesia History: No Prior Anesthetic Complications, Past Anesthesia (c/s) Test: Negative (01/28/17) Alcohol Use: none Drug use: none Medications and Allergies No Known Home Drugs 01/28/17 [History] Allergies Penicillins Allergy (Verified 01/28/17 17:08) Rash - Meds/Allergy Pre-op Review Medications Reviewed: Yes Allergies Reviewed: Yes Beta Blockers on Current Med List: No Anesthesia Results - Labs 01/28/17 17:56 01/28/17 17:56 Anesthesia Exam Vital Signs/O2 Sat/Glucose, Most Current Resp BP 01/28/17 21:16 18 112/75 Height: 1.65 Weight: 56 NPO (# of Hours): >8 - HEENT Pupil (Motor): Pupils equal, EOMI Mallampati: I Teeth: Normal (with braces) Oral Opening: Greater than 3 - BUSINESS DEPARTMENT CHAIR LOC: Oriented BUSINESS DEPARTMENT CHAIR Motor: Normal RUE, Normal LUE, Normal RLE, Normal LLE, Normal Face BUSINESS DEPARTMENT CHAIR Sensory: Normal: RUE, LUE, RLE, LLE, Face - Cardiac Rhythm: Regular Murmur: None - Pulmonary Breath Sounds: bilateral Clear Respiratory Effort: Symmetrical Anesthesia Assess/Plan ASA Score: 2, E Modified Rashad Scale for Level of Consciousness: Cooperative, oriented, and tranquil Anesthetic Plan: General Monitoring Plan: Standard Monitors Recovery Plan: PACU
[2017-01-28] MEDS ORDERED: Ringers Solution, Lactated 1,000 ML IVC SCH (22:00)
[2017-01-28] MEDS ORDERED: CefOXitin 1,000 MG VIAL ONE (22:06)
[2017-01-28] MEDS ORDERED: *HR* Rocuronium Bromide 50 MG/5 ML VIAL ONE (22:13)
[2017-01-28] MEDS ORDERED: *HR* Propofol 200 MG/20 ML VIAL IVP ONE (22:13)
[2017-01-28] MEDS ORDERED: Lidocaine -MPF 2% 2 ML VIAL ONE (22:13)
[2017-01-28] MEDS ORDERED: *HR* Midazolam HCl 2 MG/2 ML VIAL ONE (22:13)
[2017-01-28] MEDS ORDERED: Ondansetron 4 MG/2 ML VIAL ONE (22:13)
[2017-01-28] MEDS ORDERED: *HR* FentaNYL (PF) 100 MCG/2 ML VIAL ONE (22:13)
[2017-01-28] MEDS ORDERED: Dexamethasone 4 MG/ML VIAL ONE (22:13)
[2017-01-28] MEDS ORDERED: Clindamycin 600 MG/50 ML 600 MG/50 ML IV.SOLN IVPB ONE (22:16)
[2017-01-28] MEDS ORDERED: Acetaminophen IV 1,000 MG/100 ML INFUS..BTL ONE (22:16)
[2017-01-28] MEDS ORDERED: Ketorolac 30 MG/ML VIAL ONE (22:38)
[2017-01-28] MEDS ORDERED: Neostigmine Methylsulfate 3 MG/3 ML SYRINGE ONE (23:11)
[2017-01-28] MEDS ORDERED: *HR* HYDROmorphone (PF) 1 MG/ML SYRINGE ONE (23:29)
[2017-01-28] MEDS: *HR* HYDROmorphone (PF) 1 MG/ML SYRINGE IVP PRN ×2 (23:31→23:42)
--- NOTE | 2017-01-28 23:31 | Operative Note ---
Date of procedure: 01/28/17 Pre-op diagnosis: Acute cholecystitis and possible choledocholithiasis Post-op diagnosis: other (Choledocholithiasis and obstructed distal common bile duct) Procedure: Laparoscopic cholecystectomy, cholangiogram Anesthesia: YANGA Surgeon: Bjorn Rudd Estimated blood loss (cc): 50 Specimen: Gallbladder and contents Condition: stable Disposition: PACU Procedure in Detail: Laparoscopic cholecystectomy and intraoperative cholangiogram Operative procedure after informed consent and appropriate patient identification timeout the patient's take major operating suite and placed supine position given adequate general endotracheal anesthesia the abdomen is prepped and draped in sterile fashion utilizing ChloraPrep standard draping techniques timeout was taken patient is identified. I made a vertical midline incision below the umbilicus dissected down to level of fascia there are 2 traction stitches placed in the abdominal cavity was entered visually. A Hester trocar was placed in the abdomen and the abdomen was insufflated to 15 mmHg pressure CO2 the gallbladder was visualized. A placement 11 port in the subxiphoid area and 2 5 mm ports in the subcostal area. The gallbladder was grasped and elevated. The common bile duct appeared to have a low bifurcation with the cystic duct coming off the right hepatic duct. Both right and left hepatic ducts were dilated in the cystic duct was dilated. A variety of blunt and sharp dissection techniques were used to isolate the cystic duct and cystic artery. The cystic artery was controlled with 2 surgical clips proximally and one distally and it was divided I placed a surgical clip on the neck the gallbladder and obtained an intraoperative cholangiogram using 30 mL of Isovue. Intraoperative cholangiogram demonstrated a low bifurcation with the cystic duct leading into the right hepatic duct. The extrahepatic biliary ducts were dilated. There appeared to be choledocholithiasis. There was no flow into the duodenum.. The cholangiocatheter was removed and the cystic duct was controlled with 2 surgical clips proximally and was divided the gallbladder was removed from the gallbladder fossae using electrocautery. The gallbladder was removed through the #11 port site using a specimen bag. I replaced the #11 port and irrigated with copious amounts of antibiotic containing solution. There is no evidence of bleeding or bile leak. All trochars were removed. Fascia was closed with 0 Vicryl skin with 2-0 and 4-0 Vicryl she tolerated the procedure well and was transferred to recovery in stable condition
--- NOTE | 2017-01-28 23:59 | Anesthesia Evaluation Post Op ---
Date of Encounter: 01/28/17 Time of Encounter: 23:58 - Vital Signs Vital Signs: Vital Signs/O2 Sat/Glucose, Most Current Temp Pulse Resp BP Pulse Ox 01/28/17 23:45 52 16 107/71 98 01/28/17 23:35 53 16 112/77 99 01/28/17 23:25 97.7 F 87 20 122/79 97 01/28/17 21:16 18 112/75 - Lungs Lungs: Clear Ascult./Percussion - Airway Airway: Non-obstructed - Cardiovascular Regular Rate - Mental Status Mental Status: Alert & Oriented, Answers Appropriately - Pain Pain Scale: 3 - Nausea Vomiting Nausea Vomiting: Not Present - Hydration Hydration: Tolerates oral liquids - Discharge PostOp Status: Transfer Patient to floor
[2017-01-29] MEDS ORDERED: *HR* OxyCODONE/APAP 5/325 TABLET PO PRN (00:10)
[2017-01-29] MEDS ORDERED: *HR* HYDROmorphone (PF) 1 MG/ML SYRINGE IVP PRN (00:10)
[2017-01-29] MEDS ORDERED: Ondansetron 4 MG/2 ML VIAL IVP PRN (00:10)
[2017-01-29] MEDS ORDERED: 0.9 % Sodium Chloride 1,000 ML IVC SCH (00:10)
[2017-01-29] MEDS: Clindamycin 900 MG/50 ML 900 MG/50 ML IV.SOLN IVPB SCH ×2 (00:59→08:32)
[2017-01-29 05:07] LABS: INR 1.3; Prothrombin Time 14.3 Seconds (9.4-12.1)
[2017-01-29 05:09] LABS: Activated Partial Thrombo Time 30.5 Seconds (26.0-36.0)
[2017-01-29 05:16] LABS: Basophils % 0.1 %; Hematocrit 39.2 % (35.3-44.9); Hemoglobin 12.5 g/dL (11.5-15.4); Immature Granulocytes % 0.4 % (0-4); Lymphocytes # 0.5 K/mcL (0.6-4.6); Mean Corpuscular HGB Conc 31.9 g/dL (31.6-35.5); Mean Corpuscular Hemoglobin 28.3 pg (28.0-33.3); Mean Corpuscular Volume 88.9 fL (83.0-100.0); Mean Platelet Volume 9.1 fL (9.4-12.4); Monocytes # 0.1 K/mcL (0.0-1.3); Monocytes % 1.2 %; Neutrophils # 10.1 K/mcL (1.6-8.9); Platelet Count 319 K/mcL (140-400); Red Blood Count 4.41 M/mcL (3.82-4.97); Red Cell Distribution Width 13.3 % (11.5-14.5); Segmented Neutrophils % 93.3 %
[2017-01-29 05:24] LABS: Alanine Aminotransferase 366 Units/L (0-55); Albumin 3.5 g/dL (3.5-5.0); Albumin/Globulin Ratio 1.3 (1.1-2.2); Alkaline Phosphatase 190 Units/L (38-126); Amylase 25 Units/L (25-125); Aspartate Amino Transferase 508 Units/L (5-34); BUN/Creatinine Ratio 10 (6-26); Bilirubin,Direct 1.7 mg/dL (0.0-0.5); Blood Urea Nitrogen 7 mg/dL (7-20); Calcium 8.7 mg/dL (8.6-10.8); Carbon Dioxide 25 mEq/L (19-29); Chloride 107 mEq/L (98-109); Globulin 2.8 g/dL (2.4-3.5); Glucose 131 mg/dL (70-99); Lipase 21 Units/L (8-78); Osmolality,Calculated 286 (280-300); Sodium 138 mEq/L (136-145); Total Protein 6.3 g/dL (6.0-8.3); eGFR For African Americans > 60 (> 60); eGFR For Non-African Americans > 60 (> 60)
[2017-01-29 05:26] LABS: Bilirubin,Total 2.7 mg/dL (0.2-1.2)
--- NOTE | 2017-01-29 07:53 | General Surgery Progress Note ---
Date of Encounter: 01/29/17 Time of Encounter: 07:30 - Assessment and Plan (1) Choledocholithiasis Current Visit: Yes Status: Acute POD#1 laparoscopic cholecystectomy and intraoperative cholangiogram which demonstrated a little bifurcation with the cystic duct leading into the right hepatic duct. The extrahepatic biliary ducts were dilated. There appeared to be choledocholithiasis. 1. Continue supportive care including IV fluids discomfort control scheduled Toradol Q6 hours as well as PRN hydromorphone 2. Elevated LFTs and bilirubin consistent with above: Transfer to [facility] for GI consult and likely ERCP Spoke with the [facility] access transfer center at at approximately 745 this a.m. The do not have an excepting provider or bed available for the patient at this time but will discuss with [facility] and the hospital list and return our phone call. The chemical unit operator faxed to [employer] to -Will await return phone call for bed placement; 3. Keep patient NPO in the meantime as I did express to them that it is preferable for the ERCP to be completed today if possible. (2) Acute cholecystitis Current Visit: Yes Status: Acute See plan above Subjective Patient reports: feels better, still having pain, pain is less, tolerating liquids well, voiding w/o difficulty, no flatus, no bowel movement Narrative: WILIAM Hwoard is resting in bed. Denies nausea, vomiting, flatus, or bowel movement. She states she is ambulating to and from the bathroom and waiting without difficulty. She states understanding of the plan for transfer to [facility] given the need for ERCP. Her father is at bedside and states understanding. Both deny questions at this time. Objective Vital Signs - Last 8 Hours Temp Pulse Resp BP Pulse Ox 01/29/17 06:53 97.5 F L 52 16 97/63 98 01/29/17 03:35 98.9 F 57 16 122/77 98 01/29/17 02:35 98.2 F 56 16 111/71 97 01/29/17 01:20 97.6 F 53 16 120/77 98 01/29/17 00:50 98.0 F 52 16 125/80 98 01/29/17 00:15 97.5 F L 52 16 121/75 98 01/28/17 23:55 97.3 F L 53 16 109/69 100 Intake and Output 01/28/17 01/28/17 01/29/17 15:59 23:59 07:59 Intake Total 100 / 100 50 / 50 Output Total 40 / 40 0 / 0 Balance 60 / 60 50 / 50 Intake: IV Fluids 100 / 100 50 / 50 Cleocin Premix 900 MG/50 50 / 50 ML 900 mg In 50 ml @ 50 mls/hr IVPB Q8HR [facility] Rx#: [id number] Mefoxin 2,000 MG In 100 / 100 Dextrose 5% (Minibag+) 100 ML 100 ML @ 200 mls/ hr IVPB ONCE ONE Rx#: [id number] Output: Urine 0 / 0 Estimated Blood Loss 40 / 40 Other: # Bowel Movements 0 Weight 60.5 kg Patient Weight 01/29/17 23:59 Weight 60.5 kg - General physical appearance well developed, well nourished, no distress - Eyes normal ocular movement - ENT normal mucosa - Neck Neck exam: trachea midline - Respiratory normal expansion, normal respiratory effort, clear to auscultation - Cardiovascular Cardiovascular exam: Present: bradycardia, regular rhythm - Abdomen Abdomen: Present: bowel sounds present, soft Hernia: none - Incision Incision: Present: clean and dry, intact - Integumentary no rash - Neurologic CN 2-12 grossly intact - Musculoskeletal normal posture - Psychiatric oriented to time, oriented to person, oriented to place - Labs 01/29/17 04:33 01/29/17 04:33 Diabetes panel 01/29/17 Range/Units 04:33 Sodium 138 (136-145) mEq/L Potassium 4.0 (3.5-4.5) mEq/L Chloride 107 (98-109) mEq/L Carbon Dioxide 25 (19-29) mEq/L BUN 7 (7-20) mg/dL Creatinine 0.69 (0.57-1.11) mg/dL Glucose 131 H (70-99) mg/dL Calcium 8.7 (8.6-10.8) mg/dL AST 508 H (5-34) Units/L ALT 366 H (0-55) Units/L Alkaline Phosphatase 190 H (38-126) Units/L Albumin 3.5 (3.5-5.0) g/dL Calcium panel 01/29/17 Range/Units 04:33 Calcium 8.7 (8.6-10.8) mg/dL Albumin 3.5 (3.5-5.0) g/dL Pituitary panel 01/29/17 Range/Units 04:33 Sodium 138 (136-145) mEq/L Potassium 4.0 (3.5-4.5) mEq/L Chloride 107 (98-109) mEq/L Carbon Dioxide 25 (19-29) mEq/L BUN 7 (7-20) mg/dL Creatinine 0.69 (0.57-1.11) mg/dL Glucose 131 H (70-99) mg/dL Calcium 8.7 (8.6-10.8) mg/dL Adrenal panel 01/29/17 Range/Units 04:33 Sodium 138 (136-145) mEq/L Potassium 4.0 (3.5-4.5) mEq/L Chloride 107 (98-109) mEq/L Carbon Dioxide 25 (19-29) mEq/L BUN 7 (7-20) mg/dL Creatinine 0.69 (0.57-1.11) mg/dL Glucose 131 H (70-99) mg/dL Calcium 8.7 (8.6-10.8) mg/dL Total Bilirubin 2.7 H D (0.2-1.2) mg/dL AST 508 H (5-34) Units/L ALT 366 H (0-55) Units/L Alkaline Phosphatase 190 H (38-126) Units/L Albumin 3.5 (3.5-5.0) g/dL - VTE Documentation of Mechanical Device: Intermittent pneumatic compression device Consult Discharge Plan - Plan Additional Instructions: Transfer to [facility] today. Awaiting return call for accepting provider and bed placement. At d/c from [facility]: -No lifting, pulling, pushing, greater than 15 pounds for 2 weeks. -Okay to climb stairs. -May resume driving when you have been off narcotics for 24 hours and you are safe to react in the car. -You may shower beginning tomorrow. Wash the incisions daily with soap and water and pat dry. -No swimming, tough bath, or soaking for 2 weeks. -Return to the office for follow-up as directed. -Report any increase in discomfort or any new fevers greater than 101.5 degrees and signs of infection such as redness, swelling, or drainage from the incisions. -Follow-up with Khalida Sales CNP on at 08:45 am Referrals: Alena Buckley CNP [Primary Care Provider] - Khalida Sales CNP [Advanced Practice Nurse] - ( at 08:45 am) Transfer Discharge Sum: Hosp Hospital course: Anita is a 21-year-old female who presented on 01/28/2017, with abdominal pain. She was noted to have acute cholecystitis and possible choledocholithiasis. She was taken to the operating room where she underwent a laparoscopic cholecystectomy and intraoperative cholangiogram. The intraoperative choliangiogram demonstrated a little bifurcation with the cystic duct leading into the right hepatic duct. The extrahepatic biliary ducts were dilated. There appeared to be choledocholithiasis. She is ambulating in her room and voiding without difficulty. Her discomfort is controlled on her current regimen. She is NPO for anticpated ERCP per [facility] today. - Time Spent with Patient Total time spent providing and/or coordinating transfer services:
--- NOTE | 2017-01-29 08:27 | Discharge Summary ---
<RockyJanna Britney - Last Filed: 01/29/17 11:21> Date of Encounter: 01/29/17 Time of Encounter: 07:30 - Discharge Diagnosis (1) Choledocholithiasis Priority: Primary Status: Acute Comments: POD#1 laparoscopic cholecystectomy and intraoperative cholangiogram which demonstrated a little bifurcation with the cystic duct leading into the right hepatic duct. The extrahepatic biliary ducts were dilated. There appeared to be choledocholithiasis. 1. Continue supportive care including IV fluids discomfort control scheduled Toradol Q6 hours as well as PRN hydromorphone 2. Elevated LFTs and bilirubin consistent with above: Transfer to [facility] for GI consult and likely ERCP Spoke with the [facility] access transfer center at at approximately 745 this a.m. The do not have an excepting provider or bed available for the patient at this time but will discuss with G.I. and the hospital list and return our phone call. The community ambassador faxed to [employer] to -Will await return phone call for bed placement; 3. Keep patient NPO in the meantime as I did express to them that it is preferable for the ERCP to be completed today if possible. 01/29/2017 0944: pt has been accepted by Dr. Land at [facility]. She has requested pt remain NPO. [facility] will return [place] for bed placement. (2) Acute cholecystitis Priority: Primary Status: Resolved Comments: See above - Discharge Medications Home Medications: No Known Home Drugs 01/28/17 [History] Allergies/Adverse Reactions: Allergies Penicillins Allergy (Verified 01/28/17 17:08) Rash General Surgery Exam Initial Vital Signs Temp Pulse Resp BP Pulse Ox 97.9 F 53 16 98/61 99 01/28/17 17:03 01/28/17 17:03 01/28/17 17:03 01/28/17 17:03 01/28/17 17:03 - General physical appearance well developed, well nourished, no distress - Eyes normal ocular movement - ENT normal mucosa - Neck trachea midline - Respiratory normal expansion, normal respiratory effort, clear to auscultation - Cardiovascular Cardiovascular exam: Present: bradycardia, regular rhythm - Abdomen Abdomen general surgery: Present: bowel sounds present, soft, tender (expected post-operative) - Incision Incision: Present: clean and dry, intact - Integumentary Integumentary general surgery: Present: warm and dry, no abnormal pigmentation - Neurologic Present: CN 2-12 grossly intact - Musculoskeletal Present: normal gait, normal posture - Psychiatric Psychiatric general surgery: Present: A&Ox3, appropriate Date of admission: 01/28/17 20:34 Primary care physician: Alena Buckley CNP Discharging clinician: Bjorn Hidalgo) - Patient Status Disposition: Transfer Short-Term Hosp Condition: Fair Overall status at discharge: patient is not back to baseline - Discharge Instructions Follow Up With: Khalida Sales CNP [Advanced Practice Nurse] - 02/11/17 8:45 am (02/11/2017 at 08:45 am) Alena Buckley CNP [Primary Care Provider] - Additional Instructions: Transfer to [facility] today. Awaiting return call for accepting provider and bed placement. At d/c from [facility]: -No lifting, pulling, pushing, greater than 15 pounds for 2 weeks. -Okay to climb stairs. -May resume driving when you have been off narcotics for 24 hours and you are safe to react in the car. -You may shower beginning tomorrow. Wash the incisions daily with soap and water and pat dry. -No swimming, tough bath, or soaking for 2 weeks. -Return to the office for follow-up as directed. -Report any increase in discomfort or any new fevers greater than 101.5 degrees and signs of infection such as redness, swelling, or drainage from the incisions. -Follow-up with Khalida Sales CNP on 02/11/2017 at 08:45 am 01/29/2017 0944: pt has been accepted by Dr. Land at [facility]. She has requested pt remain NPO. [facility] will return [place] for bed placement. OK to d/c per medical transport to [facility] when bed available. - Diet and Activity Diet: other (NPO at this time) - Hospital Course Hospital course: Anita is a 21-year-old female who presented on 01/28/2017, with abdominal pain. She was noted to have acute cholecystitis and possible choledocholithiasis. She was taken to the operating room where she underwent a laparoscopic cholecystectomy and intraoperative cholangiogram. The intraoperative choliangiogram demonstrated a little bifurcation with the cystic duct leading into the right hepatic duct. The extrahepatic biliary ducts were dilated. There appeared to be choledocholithiasis. She is ambulating in her room and voiding without difficulty. Her discomfort is controlled on her current regimen. She is NPO for anticpated ERCP per [facility] today. - Time Spent with Patient Total time spent providing and/or coordinating discharge services: Greater than 30 minutes Labs on day of discharge: Labs from last 24 hours 01/29/17 01/29/17 01/29/17 04:33 04:33 04:33 WBC 10.8 RBC 4.41 Hgb 12.5 Hct 39.2 MCV 88.9 MCH 28.3 MCHC 31.9 RDW 13.3 Plt Count 319 MPV 9.1 L Immature Gran % 0.4 Seg Neutrophils % 93.3 Lymphocytes % 5.0 Monocytes % 1.2 Eosinophils % 0.0 Basophils % 0.1 Neutrophils # 10.1 H Lymphocytes # 0.5 L Monocytes # 0.1 Eosinophils # 0.0 Basophils # 0.0 PT 14.3 H INR 1.3 APTT 30.5 Sodium 138 Potassium 4.0 Chloride 107 Carbon Dioxide 25 BUN 7 Creatinine 0.69 Est GFR ( Amer) > 60 Est GFR (Non-Af Amer) > 60 BUN/Creatinine Ratio 10 Glucose 131 H Calculated Osmolality 286 Calcium 8.7 Total Bilirubin 2.7 H D Direct Bilirubin 1.7 H D Indirect Bilirubin 1.0 AST 508 H ALT 366 H Alkaline Phosphatase 190 H Serum Total Protein 6.3 Albumin 3.5 Globulin 2.8 Albumin/Globulin Ratio 1.3 Amylase 25 Lipase 21 Urine Color Urine Clarity Urine pH Ur Specific [place] Urine Protein Urine Glucose (UA) Urine Ketones Urine Blood Urine Nitrite Urine Bilirubin Urine Urobilinogen Ur Leukocyte Esterase Urine Microscopic RBC Urine Microscopic WBC Ur Squamous Epith Cells Amorphous Sediment Urine Bacteria Urine Mucus Ur Culture Indicated? Urine Test 01/28/17 01/28/17 20:50 20:50 WBC RBC Hgb Hct MCV MCH MCHC RDW Plt Count MPV Immature Gran % Seg Neutrophils % Lymphocytes % Monocytes % Eosinophils % Basophils % Neutrophils # Lymphocytes # Monocytes # Eosinophils # Basophils # PT INR APTT Sodium Potassium Chloride Carbon Dioxide BUN Creatinine Est GFR ( Amer) Est GFR (Non-Af Amer) BUN/Creatinine Ratio Glucose Calculated Osmolality Calcium Total Bilirubin Direct Bilirubin Indirect Bilirubin AST ALT Alkaline Phosphatase Serum Total Protein Albumin Globulin Albumin/Globulin Ratio Amylase Lipase Urine Color Dark Yellow Urine Clarity Turbid A Urine pH 8.0 Ur Specific [place] > 1.030 H Urine Protein Trace Urine Glucose (UA) Normal Urine Ketones Negative Urine Blood Negative Urine Nitrite Negative Urine Bilirubin Small H Urine Urobilinogen Normal Ur Leukocyte Esterase Trace H Urine Microscopic RBC 0-3 Urine Microscopic WBC 3-5 H Ur Squamous Epith Cells Moderate H Amorphous Sediment Many H Urine Bacteria Many H Urine Mucus Few Ur Culture Indicated? YES A Urine Test Negative - Impressions ITS Impressions Cholangiogram,Operative 01/28/17 22:45 IMPRESSION: Downstream common duct stones with associated dilation of the intra/extrahepatic biliary ducts. D/ / Chanel Dick Cha, MD / Chanel Dick Cha, MD Interpreting Provider: Chanel Dick Cha, MD <Bjorn Rudd - Last Filed: 01/29/17 17:26> Date of Encounter: 01/29/17 - Discharge Diagnosis (1) Acute cholecystitis Status: Resolved General Surgery Exam Initial Vital Signs Temp Pulse Resp BP Pulse Ox 97.9 F 53 16 98/61 99 01/28/17 17:03 01/28/17 17:03 01/28/17 17:03 01/28/17 17:03 01/28/17 17:03 Date of admission: 01/28/17 20:34 Primary care physician: Alena Buckley CNP - Hospital Course Hospital course: Ms. Bullard is a 21 year old female - Time Spent with Patient Total time spent providing and/or coordinating discharge services: Labs on day of discharge: Labs from last 24 hours 01/29/17 01/29/17 01/29/17 11:18 04:33 04:33 WBC RBC Hgb Hct MCV MCH MCHC RDW Plt Count MPV Immature Gran % Seg Neutrophils % Lymphocytes % Monocytes % Eosinophils % Basophils % Neutrophils # Lymphocytes # Monocytes # Eosinophils # Basophils # PT 14.3 H INR 1.3 APTT 30.5 Sodium 138 Potassium 4.0 Chloride 107 Carbon Dioxide 25 BUN 7 Creatinine 0.69 Est GFR ( Amer) > 60 Est GFR (Non-Af Amer) > 60 BUN/Creatinine Ratio 10 Glucose 131 H POC Glucose 128 H Calculated Osmolality 286 Calcium 8.7 Total Bilirubin 2.7 H D Direct Bilirubin 1.7 H D Indirect Bilirubin 1.0 AST 508 H ALT 366 H Alkaline Phosphatase 190 H Serum Total Protein 6.3 Albumin 3.5 Globulin 2.8 Albumin/Globulin Ratio 1.3 Amylase 25 Lipase 21 Urine Color Urine Clarity Urine pH Ur Specific [place] Urine Protein Urine Glucose (UA) Urine Ketones Urine Blood Urine Nitrite Urine Bilirubin Urine Urobilinogen Ur Leukocyte Esterase Urine Microscopic RBC Urine Microscopic WBC Ur Squamous Epith Cells Amorphous Sediment Urine Bacteria Urine Mucus Ur Culture Indicated? Urine Test 01/29/17 01/28/17 01/28/17 04:33 20:50 20:50 WBC 10.8 RBC 4.41 Hgb 12.5 Hct 39.2 MCV 88.9 MCH 28.3 MCHC 31.9 RDW 13.3 Plt Count 319 MPV 9.1 L Immature Gran % 0.4 Seg Neutrophils % 93.3 Lymphocytes % 5.0 Monocytes % 1.2 Eosinophils % 0.0 Basophils % 0.1 Neutrophils # 10.1 H Lymphocytes # 0.5 L Monocytes # 0.1 Eosinophils # 0.0 Basophils # 0.0 PT INR APTT Sodium Potassium Chloride Carbon Dioxide BUN Creatinine Est GFR ( Amer) Est GFR (Non-Af Amer) BUN/Creatinine Ratio Glucose POC Glucose Calculated Osmolality Calcium Total Bilirubin Direct Bilirubin Indirect Bilirubin AST ALT Alkaline Phosphatase Serum Total Protein Albumin Globulin Albumin/Globulin Ratio Amylase Lipase Urine Color Dark Yellow Urine Clarity Turbid A Urine pH 8.0 Ur Specific [place] > 1.030 H Urine Protein Trace Urine Glucose (UA) Normal Urine Ketones Negative Urine Blood Negative Urine Nitrite Negative Urine Bilirubin Small H Urine Urobilinogen Normal Ur Leukocyte Esterase Trace H Urine Microscopic RBC 0-3 Urine Microscopic WBC 3-5 H Ur Squamous Epith Cells Moderate H Amorphous Sediment Many H Urine Bacteria Many H Urine Mucus Few Ur Culture Indicated? YES A Urine Test Negative - Impressions ITS Impressions Cholangiogram,Operative 01/28/17 22:45 IMPRESSION: Downstream common duct stones with associated dilation of the intra/extrahepatic biliary ducts. D/ / Chanel Dick Cha, MD / Chanel Dick Cha, MD Interpreting Provider: Chanel Dick Cha, MD - Attending Attestation I examined this patient and my medical decision-making was reviewed with the STEAM PRESSURE CHAMBER OPERATOR/PA/Advanced Practice Nurse/Resident Physician. I agree with the documented findings, disposition and treatment plan as described except to the extent set forth below. The chart is reviewed and the patient was appropriate for transfer to [facility] for ERCP and further management of choledocholithiasis. Bjorn Rudd MD FACS
[2017-01-29 11:21] VITALS: BP 109/67
[2017-01-29] MEDS: Ketorolac 15 MG/ML VIAL IVP SCH ×2 (11:33→11:36)
--- NOTE | 2017-01-29 17:19 | Electrocardiograph Report ---
[place] [id number] Test Date: 2017-01-28 Pat Name: Anita Bullard Department: 105 Room: 3A Gender: F [place] Worker: HUMBERTO : 1995 Requested By: Eloy Husain Order Number: [id number] Reading MD: Quan Peguero DO Measurements Intervals [place] Rate: 58 P: 59 [place]: 166 QRS: 0 QRSD: 97 T: 31 QT: 417 QTc: 414 Interpretive Statements SINUS BRADYCARDIA INCOMPLETE RIGHT BUNDLE BRANCH BLOCK Electronically Signed On 01-29-2017 17:17:41 EDT by Quan Peguero DO
== END 2017-01-29 14:17 | disposition short-term general hospital (02) ==
LOC: 3ANU 16:49 → EMEROO 16:49 → 3ANU 21:54
PROVIDERS: ADMIT Surgery; ATTEND Surgery

== ENCOUNTER 2020-03-10 16:40 | Inpatient (IN) ==
[2020-03-10] MEDS ORDERED: 0.9 % Sodium Chloride 1,000 ML IVC STA ×2 (16:56→18:56)
[2020-03-10] MEDS ORDERED: Ketorolac 15 MG/ML VIAL IVP ONE (17:01)
[2020-03-10 17:06] LABS: Basophils % 0.3 %; Eosinophils # 0.1 K/mcL (0.0-0.6); Eosinophils % 0.5 %; Hematocrit 42.5 % (35.3-44.9); Hemoglobin 13.9 g/dL (11.5-15.4); Immature Granulocytes % 0.4 % (0-4); Lymphocytes # 1.7 K/mcL (0.6-4.6); Mean Corpuscular HGB Conc 32.7 g/dL (31.6-35.5); Mean Corpuscular Hemoglobin 30.9 pg (28.0-33.3); Mean Corpuscular Volume 94.4 fL (83.0-100.0); Mean Platelet Volume 8.4 fL (9.4-12.4); Monocytes # 0.9 K/mcL (0.0-1.3); Monocytes % 8.3 %; Neutrophils # 7.8 K/mcL (1.6-8.9); Platelet Count 268 K/mcL (140-400); Red Cell Distribution Width 12.9 % (11.5-14.5); Segmented Neutrophils % 74.5 %; White Blood Count 10.5 K/mcL (4.3-11.1)
[2020-03-10 17:10] LABS: Bacteria,Urine Few per hpf (None-Few); Bilirubin,Urine Negative (Negative); Blood,Urine Small (Negative); Clarity,Urine Turbid (Clear); Color,Urine Yellow (Yellow); Glucose,Urine (UA) Normal (Normal); Ketones,Urine Negative (Negative); Leukocyte Esterase,Urine Large (Negative); Mucus,Urine Few per lpf (None-Few); Nitrite,Urine Positive (Negative); PH,Urine 6.5 pH Units (5.0-8.0); Protein,Urine 70 mg/dL (Neg-Trace); Specific Gravity,Urine 1.017 (1.010-1.025); Urobilinogen,Urine Normal (Normal); WBC,Urine TNTC per hpf (0-3)
[2020-03-10] MEDS ORDERED: cefTRIAXone 1,000 MG in Water for inj. (sterile) 10 ML IVP ONE (17:22)
[2020-03-10 17:28] LABS: BUN/Creatinine Ratio 12 (6-26); Blood Urea Nitrogen 9 mg/dL (6-20); Calcium 9.4 mg/dL (8.6-10.3); Carbon Dioxide 24 mEq/L (23-29); Chloride 101 mEq/L (98-107); Glucose 94 mg/dL (70-105); Osmolality,Calculated 282 (280-300); Potassium 3.4 mEq/L (3.5-5.1); Sodium 137 mEq/L (136-145); eGFR For African Americans > 60 (> 60); eGFR For Non-African Americans > 60 (> 60)
[2020-03-10] MEDS ORDERED: *HR* Promethazine 25 MG/ML VIAL IVP PRN (19:18)
[2020-03-10] MEDS ORDERED: Naloxone 0.4 MG/ML INJ IVP PRN (19:18)
[2020-03-10] MEDS ORDERED: *HR* HYDROmorphone (PF) 1 MG/ML SYRINGE IVP PRN (21:17)
[2020-03-10] MEDS: 0.9 % Sodium Chloride 1,000 ML IVC SCH (21:24)
[2020-03-11] MEDS: 0.9 % Sodium Chloride 1,000 ML IVC SCH (04:58)
[2020-03-11] MEDS: Acetaminophen 325 MG TABLET PO PRN ×2 (04:58→11:11)
[2020-03-11 05:02] LABS: Basophils % 0.1 %; Eosinophils # 0.1 K/mcL (0.0-0.6); Eosinophils % 0.7 %; Hematocrit 35.6 % (35.3-44.9); Immature Granulocytes % 0.2 % (0-4); Lymphocytes # 1.4 K/mcL (0.6-4.6); Lymphocytes % 15.3 %; Mean Corpuscular HGB Conc 32.3 g/dL (31.6-35.5); Mean Corpuscular Hemoglobin 31.4 pg (28.0-33.3); Mean Corpuscular Volume 97.3 fL (83.0-100.0); Mean Platelet Volume 8.8 fL (9.4-12.4); Monocytes # 0.8 K/mcL (0.0-1.3); Monocytes % 8.7 %; Neutrophils # 6.9 K/mcL (1.6-8.9); Platelet Count 207 K/mcL (140-400); Red Blood Count 3.66 M/mcL (3.82-4.97); Red Cell Distribution Width 12.8 % (11.5-14.5); White Blood Count 9.2 K/mcL (4.3-11.1)
[2020-03-11 05:03] LABS: Hemoglobin 11.5 g/dL (11.5-15.4); INR 1.4; Prothrombin Time 15.5 Seconds (9.4-12.1)
[2020-03-11 05:12] LABS: Albumin 3.8 g/dL (3.5-5.7); Albumin/Globulin Ratio 1.6 (1.1-2.2); BUN/Creatinine Ratio 11 (6-26); Bilirubin,Direct 0.3 mg/dL (0.0-0.2); Bilirubin,Indirect 0.6 mg/dL (0.0-1.0); Bilirubin,Total 0.9 mg/dL (0.3-1.0); Blood Urea Nitrogen 8 mg/dL (6-20); Calcium 8.1 mg/dL (8.6-10.3); Carbon Dioxide 23 mEq/L (23-29); Chloride 110 mEq/L (98-107); Globulin 2.4 g/dL (2.4-3.5); Glucose 118 mg/dL (70-105); Magnesium 1.8 mg/dL (1.6-2.6); Osmolality,Calculated 287 (280-300); Phosphorous 1.4 mg/dL (2.7-4.5); Potassium 3.6 mEq/L (3.5-5.1); Sodium 139 mEq/L (136-145); Total Protein 6.2 g/dL (6.4-8.9); eGFR For African Americans > 60 (> 60); eGFR For Non-African Americans > 60 (> 60)
[2020-03-11] MEDS: Venlafaxine XR (24 HR) 37.5 MG CAP.ER.24H PO SCH ×2 (08:19→08:22)
[2020-03-11 08:47] LABS: Acinetobacter baumannii by PCR Not Detected (Not Detect); Candida albicans by PCR Not Detected (Not Detect); Candida glabrata by PCR Not Detected (Not Detect); Candida krusei by PCR Not Detected (Not Detect); Candida parapsilosis by PCR Not Detected (Not Detect); Candida tropicalis by PCR Not Detected (Not Detect); Enterobacter cloacae Cmplx PCR Not Detected (Not Detect); Enterococcus by PCR Not Detected (Not Detect); Escherichia coli by PCR DETECTED (Not Detect); Klebsiella oxytoca by PCR Not Detected (Not Detect); Klebsiella pneumoniae by PCR Not Detected (Not Detect); Proteus by PCR Not Detected (Not Detect); Pseudomonas aeruginosa by PCR Not Detected (Not Detect); Serratia marcescens by PCR Not Detected (Not Detect); Staphylococcus aureus by PCR Not Detected (Not Detect); Staphylococcus by PCR Not Detected (Not Detect); Streptococcus agalactiae(B)PCR Not Detected (Not Detect); Streptococcus by PCR Not Detected (Not Detect); Streptococcus pneumoniae PCR Not Detected (Not Detect); Streptococcus pyogenes (A) PCR Not Detected (Not Detect); blaKPC Carbapenem-Resist Gene Not Detected (Not Detect)
[2020-03-11] MEDS ORDERED: cefTRIAXone 1,000 MG in Water for inj. (sterile) 10 ML IVP SCH (09:00)
[2020-03-11] MEDS ORDERED: Potassium Phosphate 44 MEQ in 0.9 % Sodium Chloride 250 ML IVPB ONE (14:38)
[2020-03-11] MEDS ORDERED: *HR* HYDROcodone/Acet 5/325 mg TABLET PO PRN (16:01)
[2020-03-12] MEDS: cefTRIAXone 2,000 MG in Water for inj. (sterile) 20 ML IVP SCH (09:02)
[2020-03-12] MEDS: Venlafaxine XR (24 HR) 37.5 MG CAP.ER.24H PO SCH (09:02)
[2020-03-13 06:45] LABS: Basophils % 0.5 %; Eosinophils # 0.2 K/mcL (0.0-0.6); Eosinophils % 3.8 %; Hematocrit 39.2 % (35.3-44.9); Hemoglobin 12.5 g/dL (11.5-15.4); Immature Granulocytes % 0.2 % (0-4); Lymphocytes # 1.9 K/mcL (0.6-4.6); Lymphocytes % 34.8 %; Mean Corpuscular HGB Conc 31.9 g/dL (31.6-35.5); Mean Corpuscular Volume 97.3 fL (83.0-100.0); Mean Platelet Volume 8.9 fL (9.4-12.4); Monocytes # 0.7 K/mcL (0.0-1.3); Neutrophils # 2.6 K/mcL (1.6-8.9); Platelet Count 237 K/mcL (140-400); Red Blood Count 4.03 M/mcL (3.82-4.97); Red Cell Distribution Width 12.8 % (11.5-14.5); Segmented Neutrophils % 47.7 %; White Blood Count 5.5 K/mcL (4.3-11.1)
[2020-03-13 07:04] LABS: BUN/Creatinine Ratio 13 (6-26); Blood Urea Nitrogen 8 mg/dL (6-20); Calcium 9.5 mg/dL (8.6-10.3); Carbon Dioxide 25 mEq/L (23-29); Chloride 107 mEq/L (98-107); Glucose 92 mg/dL (70-105); Osmolality,Calculated 284 (280-300); Sodium 138 mEq/L (136-145); eGFR For African Americans > 60 (> 60); eGFR For Non-African Americans > 60 (> 60)
[2020-03-13] MEDS: cefTRIAXone 2,000 MG in Water for inj. (sterile) 20 ML IVP SCH (09:20)
[2020-03-13] MEDS: Venlafaxine XR (24 HR) 37.5 MG CAP.ER.24H PO SCH (09:20)
[2020-03-13 10:39] VITALS: BP 111/74
== END 2020-03-13 10:57 | disposition home or self-care (01) | DRG 720 ==
LOC: EMEROOARM 16:40 → 3ANU 16:40 → SUATTDRO 19:23 → 3ANU 19:41
PROVIDERS: ADMIT Student in an Organized Health Care Education/Training Program; ATTEND Internal Medicine